=== PATIENT | male | born 1980 | race African-American/Black ===

== ENCOUNTER 2017-05-16 13:18 | Outpatient (CLI) | payer BC ==
--- NOTE | 2017-05-16 16:03 | Diagnostic Imaging Report ---
Indication: COUGH Technique: 2 views of the chest Comparison: none. Findings: Lungs and pleural spaces are clear. Heart size is normal. Bones are unremarkable.. Impression: No acute process
== END 2017-05-16 15:18 | disposition home or self-care (01) ==
LOC: RAD 13:18
DX: R05 Cough (principal); R07.9 Chest pain, unspecified; R06.02 Shortness of breath
CPT/HCPCS: 71020